=== PATIENT | female | born 1980 | race Caucasian/White ===

== ENCOUNTER 2016-10-07 09:42 | Emergency (ER) | END 2016-10-07 14:50 | disposition home or self-care (01) | DX: D72.829 Elevated white blood cell count, unspecified (principal); N39.0 Urinary tract infection, site not specified; E86.0 Dehydration; K80.20 Calculus of gallbladder without cholecystitis without obstruction; I10 Essential (primary) hypertension; E11.9 Type 2 diabetes mellitus without complications; R11.2 Nausea with vomiting, unspecified; Z79.84 Long term (current) use of oral hypoglycemic drugs | CPT/HCPCS: 76705; 80053; 81001; 83690; 85025; 96374; 96375; J0696; J2270; J2405; J7030; Z7502; Z7610 ==